=== PATIENT | male | born 1985 ===

== ENCOUNTER 2021-03-23 12:50 | Emergency (ER) | payer SELFPAY ==
--- NOTE | ~2021-03-23 | XR_ITS ---
EXAMINATION: XR ANKLE, RIGHT CLINICAL INFORMATION: Right ankle pain COMPARISON: None TECHNIQUE: AP, lateral, and mortise views of the right ankle. FINDINGS: There is bimalleolar soft tissue swelling. No visible acute fracture, dislocation or subluxation seen. Ankle mortise and subtalar joints are normal. XR/XR ankle RT min 3V IMPRESSION: Bimalleolar soft tissue swelling. No visible acute fracture, dislocation or subluxation seen.
[2021-03-23 14:01] VITALS: BP 138/70; PULSE 72; RESP 16; TEMP 36.6; O2SAT 100; BMI 39.5
[2021-03-23 17:37] VITALS: BP 143/81; PULSE 72; RESP 17; O2SAT 100
--- NOTE | 2021-03-23 17:47 | ED.LOWEXIN ---
HPI - Extremity Injury (Lower) General Chief Complaint: Extremity Injury, Lower Stated Complaint: ankle injury Time Seen by Provider: 03/23/21 17:42 Source: patient Mode of arrival: ambulatory Limitations: no limitations History of Present Illness complaint: ankle injury Onset (ago): minute(s) Injury: Right: ankle Type of Injury: eversion Place: street/outdoors Severity: severe Relieving factors: immobilization and rest Exacerbating factors: weight bearing, movement and palpation Context: running Associated symptoms: snap/pop sensation and swelling Other symptoms: none Related Data Previous Rx's Medication Instructions Recorded cyclobenzaprine 10 mg tablet 10 mg PO TID PRN #14 tab 03/23/21 hydrocodone 5 mg-acetaminophen 325 1 tab PO Q6H PRN #12 tab 03/23/21 mg tablet ibuprofen 600 mg tablet 600 mg PO Q6H PRN #30 tab 03/23/21 Allergies Allergy/AdvReac Type Severity Reaction Status Date / Time No Known Allergies Allergy Unverified 03/27/20 15:30 [No Known Allergies*] Review of Systems Review of Systems: Constitutional : No Fever, No Chills Cardiovascular : No Chest Pain, No SOB Respiratory : No Cough, No Dyspnea Gastrointestinal : No Nausea, No Vomiting, No Diarrhea, No abdominal Pain Genitourinary : No Dysuria, No Hematuria Musculoskeletal : positive joint pain, No Myalgias, pos Joint Swelling Skin : No Skin lacerations, No rash Neuro : No Weakness, No Numbness PMFSH Past Medical History Medical History (Updated 03/23/21 @ 17:52 by Nat Owens DO) No known health problems Social History Social History Advance Directives: No Advance Directives Information Provided: Yes Physical Exam Vital Signs: Vital Signs: Last Vital Signs Temp 98 F 03/23/21 14:01 Pulse 72 03/23/21 17:37 Resp 17 03/23/21 17:37 BP 143/81 H 03/23/21 17:37 Pulse Ox 100 03/23/21 17:37 Body Mass Index 39.5 Appearance: Alert. Oriented X3. No acute distress. Eyes: Pupils equal, round and reactive to light. ENT: Pharynx normal. Neck: Normal inspection. Neck supple. CVS: Normal heart rate and rhythm. Pulses normal. Respiratory: No respiratory distress. Breath sounds normal. Abdomen: Soft and non-tender. Skin: Skin warm and dry. Normal skin color. Normal skin turgor. Extremities: R ankle bimalleolar swelling moderate distal NV intact no prox fib ttp - pain to ankle, swelling and pain noted over deltoid lig area Neuro: Oriented X 3. No motor deficit. No sensory deficit. MDM - Extremity Injury (Lower) MDM Narrative Medical decision making narrative: 35 yo male with R ankle eversion injury - distal NV intact xrays ordered no prox fib ttp, splint/crutches Procedures Orthopedic Splinting/Casting Injury #1: Side: right Lower Extremity Injury Location: ankle Lower Extremity Immobilizer: stirrup splint Other Orthopedic Equipment: crutches Discharge Plan Discharge Clinical Impression: Ankle sprain and strain Patient Disposition: Home, Self-Care Instructions: Ankle Sprain (ED), Ankle Stirrup Splint (ED) Additional Instructions: return to ED for any worsening symptoms or concerns air cast and crutches x 1 week if not better please call our orthopedics department Prescriptions: New cyclobenzaprine 10 mg tablet 10 mg PO TID PRN (Reason: muscle spasm) Qty: 14 RF: 0 hydrocodone-acetaminophen 5-325 mg tablet 1 tab PO Q6H PRN (Reason: pain) Qty: 12 RF: 0 ibuprofen 600 mg tablet 600 mg PO Q6H PRN (Reason: pain) Qty: 30 RF: 0 Referrals: Jose J Paula MD [Physician] - 1 week Stand Alone Forms: Work/School Release
== END 2021-03-23 18:54 | disposition home or self-care (01) ==
PROVIDERS: Emergency Provider Emergency Medicine
DX: S96.911A Strain of unspecified muscle and tendon at ankle and foot level, right foot, initial encounter (principal); M79.671 Pain in right foot; X58.XXXA Exposure to other specified factors, initial encounter; Y93.9 Activity, unspecified; Y92.9 Unspecified place or not applicable; Y99.9 Unspecified external cause status; Z79.899 Other long term (current) drug therapy
CPT/HCPCS: 29515; 73610; 99283; 99284

== ENCOUNTER 2023-12-19 15:45 | Emergency (ER) | payer OTHER, SELFPAY ==
--- NOTE | ~2023-12-19 | XR_ITS ---
EXAMINATION: XR HAND/WRIST, LEFT CLINICAL INFORMATION: Injury with pain COMPARISON: None TECHNIQUE: PA, lateral, and oblique views of the left hand and wrist. FINDINGS: The bones and soft tissues are normal. No fracture. Alignment is anatomic. Joint spaces are maintained. No erosions or soft tissue calcifications. XR/XR hand wrist LT IMPRESSION: Normal radiographs of the hand and wrist.
[2023-12-19 15:54] VITALS: BP 143/101; PULSE 76; RESP 18; TEMP 36.3; O2SAT 98; BMI 37.6
--- NOTE | 2023-12-19 15:54 | ED_ITS ---
HPI - General Adult General Chief complaint: Extremity Injury, Upper Stated complaint: left wrist swollen and painful pt fell Time Seen by Provider: 12/19/23 18:36 Source: patient Mode of arrival: ambulatory Limitations: no limitations History of Present Illness ED Provider: Marcella Crespo PA-C HPI narrative: Patient is a 38 year old assigned male at with no reported medical history presenting to the emergency department today with left wrist pain. Patient states that a couple days ago he was playing volleyball when he injured his left wrist. Patient states that it hurts to apply downward pressure of his left hand. Patient denies any head strike, loss of consciousness, dizziness, lightheadedness, abdominal pain, nausea, vomiting, fever, chills, blurry vision, double vision, loss of vision, chest pain, difficulty breathing, shortness of breath, back pain, night sweats, pain with urination, increased urinary frequency, increased urinary urgency, blood in his urine or stool, syncope or a near syncopal episode, bowel incontinence, bladder incontinence, or any other complaints at this time. Onset (ago): day(s) Location: left and upper extremity Severity: mild Severity scale (1-10): 3 Quality: aching and dull Pain Consistency: constant Relieving factors: none Exacerbating factors: other (pain when pushing left hand down) Associated symptoms: denies other symptoms Treatments prior to arrival: none Related Data Previous Rx's ?Medication ?Instructions ?Recorded cyclobenzaprine 10 mg tablet 10 mg PO TID PRN muscle spasm #14 03/23/21 tabs hydrocodone 5 mg-acetaminophen 325 1 tab PO Q6H PRN pain #12 tabs 03/23/21 mg tablet ibuprofen 600 mg tablet 600 mg PO Q6H PRN pain #30 tabs 03/23/21 Allergies Allergy/AdvReac Type Severity Reaction Status Date / Time No Known Allergies Allergy Verified 12/19/23 15:56 [No Known Allergies*] Review of Systems Constitutional: Constitutional: Reports no additional constitutional complaints, Denies chills, Denies fever(s) and Denies night sweats Eyes: Eyes: Reports no additional eye complaints, Denies blurry vision, Denies change in vision, Denies diplopia, Denies eye discharge, Denies loss of vision and Denies eye pain ENT: Denies dizziness Cardiovascular: Cardiovascular: Reports no additional cardiovascular complaints, Denies chest pain, Denies lightheadedness, Denies Loss of Consciousness and Denies dyspnea Respiratory: Respiratory: Reports no additional respiratory complaints and Denies dyspnea Gastrointestinal: Gastrointestinal: Reports no additional gastrointestinal complaints, Denies abdominal pain, Denies melena, Denies hematochezia, Denies change in bowel habits and Denies change in stool character Genitourinary: Genitourinary: Reports no additional male genitourinary complaints, Denies hematuria, Denies oliguria, Denies difficulty urinating, Denies dysuria, Denies urinary frequency, Denies urinary hesitancy, Denies urinary incontinence and Denies urinary urgency Musculoskeletal: Musculoskeletal: Reports no additional musculoskeletal complaints, Denies numbness and Denies tingling Comments: left wrist pain Neurologic: Denies dizziness, Denies loss of vision, Denies numbness and Denies tingling Psychiatric: Psychiatric: Reports no additional psychiatric complaints Endocrine: Endocrine: Reports no additional endocrine complaints Hematologic/Lymphatic: Hematologic/Lymphatic: Reports no additional hematologic/lymphatic complaints Allergic/Immunologic: Allergic/Immunologic: Reports no additional allergic/immunologic complaints PMFSH Past Medical History Attestation statement: The following information was validated with the patient. Source: old records reviewed and nursing notes reviewed Medical History No known health problems Social History Social History Advance Directives: No Advance Directives Information Provided: No Do you have a plan to hurt others: No Plan Physical Exam ED Vital Signs: Vital Signs - 24 hr 12/19/23 15:54 Temperature 97.4 F Pulse Rate 76 Respiratory Rate 18 Blood Pressure 143/101 H Pulse Oximetry 98 Oxygen Delivery Method Room Air BMI result Body Mass Index 37.6 Const General: cooperative, no acute distress, alert and awake Nutritional Appearance: well nourished Orientation/consciousness: patient oriented x3 Limitations: no limitations HENMT Head: Yes normal to inspection and Yes atraumatic Ears: hearing grossly normal bilaterally and external ears normal General nose exam: Normal external nose present, no nasal discharge noted and no epistaxis Face and sinus: Yes normal facial exam, No abrasion and No laceration Mouth: Normal oral and palatal mucosa present, no drooling and no muffled voice Eyes General: appearance normal, both eyes and all related structures Periorbital: periorbital findings normal Eyelids: Yes eyelids normal Conjunctivae: conjunctivae normal Pupils: Equal, round and reactive pupils present EOM: EOMs intact bilaterally Neck Neck: Yes normal visual inspection, Yes full ROM and Yes no lymphadenopathy Chest Chest palpation & inspection: normal inspection of the chest Resp Effort & Inspection: normal respiratory effort and able to speak in complete sentences GI Inspection: Yes normal to inspection Neuro General: patient oriented x3 and moves all extremities Cranial nerves: Yes Equal, round and reactive pupils present Cognition (Neuro): normal cognition Motor exam (neuro): 5/5 motor strength present throughout Sensory Exam: Normal double simultaneous stimulation for sensation Coordination: [id number] test normal Extrem Other: pain in the left wrist with pronation and supination of the left hand / wrist General: Yes normal to inspection, Yes full ROM and Yes capillary refill normal Psych Appearance: grossly normal Mental Status: mental status grossly normal Affect: normal affect Attitude: cooperative Thought process: Normal thought process present Thought content: Normal thought content present Insight: Good insight present (Psych) Course Course Course Narrative: RME performed by Marcella Crespo PA-C. Patient is a 38 year old assigned male at presenting to the emergency department with left wrist pain after a volleyball accident. Detailed physical exam and review of systems are deferred to the publications production supervisor. Imaging ordered. Patient placed back in the waiting room pending room availability and results. Procedures Orthopedic Splinting/Casting Injury #1: Side: left Upper Extremity Injury Location: wrist Upper Extremity Immobilizer: thumb spica Medical Decision Making Medical Decision Making MDM Narrative: Patient is a 38 year old assigned male at with no reported medical history presenting to the emergency department today with left wrist pain. Patient's physical exam was as noted in the physical exam portion of this note. Patient's left hand/wrist x-ray showed no acute process. Given patient's clinical presentation, will treat with a velcro thumb spica splint. I explained my physical exam findings as well as all test results to the patient. I answered all questions asked by the patient. Patient's left wrist was placed in a velcro thumb spica splint, without incident. Patient's PMS was intact prior to and after splint placement. I stressed the importance of the patient taking his medication as prescribed. I stressed the importance of the patient following up with his primary care provider and an orthopedic provider. I stressed the importance of the patient returning to the emergency department immediately if his symptoms were to worsen or if he were to develop any dizziness, shortness of breath, difficulty breathing, chest pain, blurry vision, loss of vision, nausea, vomiting, abdominal pain, fever, chills, back pain, or any other complaints. Patient verbalized agreement and understanding with this treatment plan and discharge. Differential Diagnosis Differential Diagnoses: The differential diagnosis associated with the presentation includes Left wrist fracture Left hand fracture Left wrist sprain Left wrist strain Admission/Observation Consideration of admission/observation: Escalation of care including admission/observation considered Patient would have been admitted to the hospital had his work up had any findings where hospital admission was appropriate and his clinical presentation warranted hospital admission. Independent Interpretation I performed an independent interpretation of an: Plain X-Ray Interpretation: My interpretation is in agreement with the radiologist's impression of this imaging study. EXAMINATION: XR HAND/WRIST, LEFT CLINICAL INFORMATION: Injury with pain COMPARISON: None TECHNIQUE: PA, lateral, and oblique views of the left hand and wrist. FINDINGS: The bones and soft tissues are normal. No fracture. Alignment is anatomic. Joint spaces are maintained. No erosions or soft tissue calcifications. XR/XR hand wrist LT IMPRESSION: Normal radiographs of the hand and wrist. Dictated By: Jose El MD Signed By: Electronically signed by Jose lE MD 12/19/23 2346 Radiology Impression Discussion of test interpretation with radiology: I have reviewed the radiologist's reading. Discharge Plan Discharge Clinical Impression: Sprain and strain of wrist Patient Disposition: Home, Self-Care Instructions: Wrist Injury (ED), Sprain (ED) Additional Instructions: Please keep your splint on as much as you are able to tolerate until you are evaluated by the orthopedic team. Follow up with your primary care provider and an orthopedic provider. Return to the emergency department immediately if your symptoms worsen or if you develop any dizziness, shortness of breath, difficulty breathing, chest pain, blurry vision, loss of vision, nausea, vomiting, abdominal pain, fever, chills, back pain, or any other complaints. Prescriptions: No Action cyclobenzaprine 10 mg tablet 10 mg PO TID PRN (Reason: muscle spasm) Qty: 14 0RF hydrocodone-acetaminophen 5-325 mg tablet 1 tab PO Q6H PRN (Reason: pain) Qty: 12 0RF ibuprofen 600 mg tablet 600 mg PO Q6H PRN (Reason: pain) Qty: 30 0RF [place] [facility] [place]] (Call to establish and follow up with a primary care provider. If you already have a primary care provider, please follow up with them.) [facility] [place] [facility] [place] [facility] [place] [facility] [place] [facility] [facility] [place] [facility] [place] Group] (Call to establish and follow up with an orthopedic provider.) Stand Alone Forms: Work/School Release Print Language: German
[2023-12-19 19:20] VITALS: PULSE 84; RESP 17; TEMP 36.6; O2SAT 97
[2023-12-19 19:23] VITALS: BP 130/78
[2023-12-19 19:25] VITALS: BP 130/78; PULSE 84; RESP 17; TEMP 36.6; O2SAT 97
== END 2023-12-19 19:25 | disposition home or self-care (01) ==
PROVIDERS: Emergency Provider Internal Medicine
DX: S63.502A Unspecified sprain of left wrist, initial encounter (principal); S66.912A Strain of unspecified muscle, fascia and tendon at wrist and hand level, left hand, initial encounter; X58.XXXA Exposure to other specified factors, initial encounter; Y93.68 Activity, volleyball (beach) (court); Y92.9 Unspecified place or not applicable; Y99.9 Unspecified external cause status
CPT/HCPCS: 73110; 73130; 99283; 99284

== ENCOUNTER 2023-12-27 10:50 | Outpatient (REF) | payer SELFPAY | END 2023-12-27 10:51 | disposition home or self-care (01) | LOC: HO.HOSX 10:50 | PROVIDERS: Visit Provider Orthopaedic Surgery | DX: Z13.89 Encounter for screening for other disorder (principal) ==

== ENCOUNTER 2023-12-28 10:06 | Outpatient (REF) | payer SELFPAY ==
--- NOTE | ~2023-12-28 | XR_ITS ---
EXAMINATION: XR OF LEFT WRIST WITH SCAPHOID CLINICAL INFORMATION: Pain in left wrist. COMPARISON: Left hand wrist December 19, 2023. TECHNIQUE: 4 views of the left wrist and scaphoid. FINDINGS: Bone mineralization is normal. Mild degenerative changes in the first carpometacarpal joint with joint space narrowing and hypertrophic change. Ulnar minus variance. Tiny cystic lucency in the lunate. XR/XR wrist LT w scaphoid IMPRESSION: 1. Mild degenerative changes in the first carpometacarpal joint. 2. Ulnar minus variance. 3. Tiny cystic lucency in the lunate.
== END 2023-12-28 10:07 | disposition home or self-care (01) ==
LOC: HO.HOSX 10:06
PROVIDERS: Visit Provider Orthopaedic Surgery
DX: S63.502A Unspecified sprain of left wrist, initial encounter (principal)
CPT/HCPCS: 73110; 99202

== ENCOUNTER 2023-12-28 10:06 | Outpatient (AMB) | payer SELFPAY ==
--- NOTE | 2023-12-28 10:21 | MHC.OFFVIS ---
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 Patient explains a couple days ago he was playing volleyball when he injured and landed hands down injuring his left wrist. Patient states that flexion and extension of the wrist causes immediate pain. Discomfort is mainly on his dorsal aspect of hand/wrist. [place]rays taken in [facility] and referred to Orthopedics for further evaluation. He states currently his pain has slightly improved. The ED provided him with a brace which provided him some relief. Tylenol and ice give relief for a short period of time. Patient works at [employer] and would like a note for work explaining if he has any restrictions. He has provided us with a work status form. 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 He says he injured his wrist playing Volleyball on ~12/18/23. He was seen in the ED on 12/19/23 and given a thumb spica splint to wear. He notes that he has had some improvement over the last 2 weeks, but he continues to have some discomfort over the dorsal ulnar aspect of his left wrist particularly with active wrist extension. His pain is worse with wrist flexion & extension & daily activities. He reports occasional numbness in his fingers but says this is not daily. 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 He works at [employer] and is requesting a note for work with any current restrictions. He has been working light duty since his injury He says he volunteers with the [employer], and this injury occurred when playing their summer games tournament weekend. [facility] Medical History No known health problems Social History Alcohol intake: current Patient Tobacco Use Status: Never used Tobacco Substance Use Type: Marijuana Current occupational status: employed Current occupation: [employer] / right hand dominant Review of Systems Const All systems reviewed & are unremarkable except as noted in HPI and below Physical Exam Vital Signs: BMI result Body Mass Index 37.7 Const General: cooperative, healthy appearing and no acute distress Orientation/consciousness: patient oriented x3 HEENT Head: Yes normocephalic and Yes atraumatic Eyes EOM: EOMs intact bilaterally Resp Effort & Inspection: normal respiratory effort and able to speak in complete sentences Cardio Jugular venous distension: no JVD Skin General skin exam: turgor normal Rashes: no rashes Neuro General: patient oriented x3 Extrem Other: Evaluation of Left Upper Extremity: The patient is alert, oriented, and in no acute distress Neuro: Median, Ulnar, Radial nerves motor and sensory intact and sensation is normal to the tips of all digits Vascular: Cap refill brisk ROM: He can make a fist and extend all his digits No locking or catching He can make a tight fist with good strength and no pain. Skin: No lacerations or abrasions. General: No Ecchymosis. No swelling No Erythema or evidence of infection. The patient localizes his discomfort to the dorsal ulnar aspect of the wrist mostly over the carpal bones. Most tender over the dorsal aspect of the Triquetrum & lunotriquetral joint Mild tenderness over the scapholunate area. No tenderness over the distal radius, DRUJ, or distal ulna DRUJ stable on exam No tenderness over the fovea No tenderness in the snuffbox or scaphoid tubercle. Mild discomfort over the dorsal ulnar aspect of the wrist with resisted wrist extension Radiographs: 3 views of the left wrist, plus a scaphoid view, were taken & viewed by me today in clinic. They show no fractures or dislocations. I look specifically for a dorsal triquetral avulsion fracture, but did not see 1. I do not see any widening of the scapholunate or lunotriquetral intervals. Interestingly he does appear to have some peaking at the radial styloid which may indicate some early arthritic changes. He is completely asymptomatic on the radial side of his wrist. Psych Appearance: grossly normal Affect: normal affect Attitude: cooperative Assessment & Plan Assessment & Plan (1) Left wrist sprain: Code(s): S63.502A - Unspecified sprain of left wrist, initial encounter Category: Medical Plan Assessment & Plan: 1. Left wrist sprain/possible bone bruise over the dorsal triquetrum DOI: ~12/18/23, after a fall playing Volleyball I educated him about this condition This can be managed conservatively. 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 otherwise he does not want need to wear his brace and should work on keeping good range of motion in his wrist. 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 He was given a note for work restricting him to light duty with a 3lb weight for his left limit for the left upper extremity for the next 6 weeks. He will follow up in 6 weeks, no X-rays unless he has continued pain Scribed for Unique Wilkinson MD by Clinton Randolph, director of medical education, on 12/28/23 at 10:50 AM, EST. Orders: Orders XR wrist LT w scaphoid Today M25.532 - Pain in left wrist Medications: Discontinued cyclobenzaprine Discontinued Reason: Patient no longer taking 10 mg PO TID PRN 14 tabs 0RF muscle spasm hydrocodone-acetaminophen 5-325 mg Discontinued Reason: Patient no longer taking 1 tab PO Q6H PRN 12 tabs 0RF pain ibuprofen Discontinued Reason: Patient no longer taking 600 mg PO Q6H PRN 30 tabs 0RF pain Coding Level of Care Code New Pt Level 3 (50051) Diagnoses Left wrist sprain S63.502A
[2023-12-28 10:39] VITALS: BMI 37.7
== END 2023-12-28 11:11 | disposition home or self-care (01) ==
PROVIDERS: Visit Provider Orthopaedic Surgery
DX: S63.502A Unspecified sprain of left wrist, initial encounter (principal)
CPT/HCPCS: 99203

== ENCOUNTER 2024-02-08 10:32 | Outpatient (AMB) | payer OTHER, SELFPAY ==
--- NOTE | 2024-02-08 11:04 | A.OFFVIS_ITS ---
Intake Visit Reasons: OV-left wrist sprain/strain-Follow up Intake Note: Roberto Carlos is a 38 yo right hand dominant male who presents today to follow up on left wrist sprain. Patient denies numbness, tingling and locking on fingers. Patient states he experiences minimal pain with certain ROM. Patient reports he has been experiencing bilateral hand numbness and tingling when putting arms on upright position. He states it usually goes away when he moves his stretches his neck. Allergies No Known Allergies [No Known Allergies*] Allergy (Verified 02/08/24 11:09) HPI HPI OV-left wrist sprain/strain-Follow up: Details: Roberto Carlos is a 38 year old right hand dominant man who returns to discuss his left wrist sprain. He says he injured his wrist playing Volleyball on ~12/18/23. He was last seen by us on 12/28/2023 and treated with activity modification and bracing. He says he has improved in the last 6 weeks, and now has only minimal pain with certain wrist motions. He continues to complain of numbness in his bilateral hands, which he feels has been worsening. He says his numbness is in all fingers, hands, and occasionally into his forearms. He says he has numbness is primarily in his right hand, and is worse with hyperflexion of his elbow, such as prolonged periods of talking on the phone. He says this improves when he moves his arms or when moving his neck. He works at [employer] and is requesting a note for work with any current restrictions. He has been working light duty since his injury He says he volunteers with the [employer], and this injury occurred when playing their summer games tournament weekend. [facility] Medical History No known health problems Social History Alcohol intake: current Patient Tobacco Use Status: Never used Tobacco Substance Use Type: Marijuana Current occupational status: employed Current occupation: [employer] / right hand dominant Physical Exam Extrem Other: Evaluation of Left Upper Extremity: The patient is alert, oriented, and in no acute distress Neuro: Median, Ulnar, Radial nerves motor and sensory intact and sensation is normal to the tips of all digits No thenar or intrinsic wasting Good APB muscle belly firing and good finger cross Vascular: Cap refill brisk ROM: No locking or catching He can make a tight fist with good strength and no pain. No pain with wrist flexion & extension No tenderness over the dorsal aspect of the Triquetrum & lunotriquetral joint No tenderness over the scapholunate area. No tenderness over the distal radius, DRUJ, or distal ulna Assessment & Plan Assessment & Plan (1) Left wrist sprain: Code(s): S63.502A - Unspecified sprain of left wrist, initial encounter Category: Medical (2) Bilateral hand numbness: Code(s): R20.0 - Anesthesia of skin Category: Medical Plan Assessment & Plan: 1. Left wrist sprain/possible bone bruise over the dorsal triquetrum DOI: ~12/18/23, after a fall playing Volleyball I educated him about this condition He will discontinue his velcro wrist splint at this time. He can wear his splint when out of the house in crowded areas or with activities prone to falling, such as hiking I discussed activity modifications, he is to work on increasing his weight limit and use his wrist for more daily activities He should continue to work on wrist ROM exercises at home. 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 He was given a note for work to return to full duty on 02/13/24 2. Bilateral hand numbness In all digits, R>L Symptoms intermittent & occasional, worse with activity I educated him about carpal & cubital tunnel syndrome I ordered a NCS to assess for peripheral nerve compression He will follow up when completed if there are any pertinent findings. Scribed for Unique Wilkinson MD by Clinton Randolph medical consultant, on 12/28/23 at 10:50 AM, EST. Orders: Orders NE nerve conduction velocity Today R20.0 - Anesthesia of skin, R20.2 - Paresthesia of skin Coding Level of Care Code Est Pt Level 3 (49699) Diagnoses Left wrist sprain S63.502A Bilateral hand numbness R20.0
== END 2024-02-08 11:43 | disposition home or self-care (01) ==
PROVIDERS: Visit Provider Orthopaedic Surgery
DX: S63.502A Unspecified sprain of left wrist, initial encounter (principal); R20.0 Anesthesia of skin
CPT/HCPCS: 99213

== ENCOUNTER → 2024-02-08 10:32 | Outpatient (BNVA) | payer OTHER, SELFPAY | PROVIDERS: Visit Provider Orthopaedic Surgery ==

== ENCOUNTER 2024-05-07 22:33 | Emergency (ER) | payer OTHER, SELFPAY ==
--- NOTE | 2024-05-07 | ECG_ITS ---
Test Reason : SOB Blood Pressure : / mmHG Vent. Rate : 059 BPM Atrial Rate : 059 BPM P-R Int : 170 ms QRS Dur : 080 ms QT Int : 374 ms P-R-T Axes : 053 034 036 degrees QTc Int : 370 ms Sinus bradycardia Otherwise normal ECG No previous ECGs available Referred By: Generic ED Physician Electronically Signed By:DIEGO BLAND
--- NOTE | ~2024-05-07 | XR_ITS ---
EXAMINATION: XR THORACIC SPINE CLINICAL INFORMATION: Thoracic spine pain with no known injury COMPARISON: None available. TECHNIQUE: 3 views of the thoracic spine were obtained. FINDINGS: There is no fracture or bone destruction seen and the vertebral alignment is normal. There is no disc space narrowing. There is no abnormality of the paraspinal soft tissues. XR/XR thoracic spine 2V IMPRESSION: Unremarkable examination. Electronically signed by: Jose El MD 05/08/2024 12:51 AM EDT
[2024-05-07 22:45] VITALS: BP 117/71; PULSE 73; RESP 18; TEMP 36.5; O2SAT 100; BMI 36.5
[2024-05-07 23:07] LABS: MANUAL DIFF FLAG NO
[2024-05-07 23:09] LABS: Basophils Absolute Auto 0.1 X10*3/uL (0.0-0.2); Basophils Percent Auto 0.4 % (0-2); Eosinophils Absolute Auto 0.4 X10*3/uL (0.0-0.4); Eosinophils Percent Auto 2.9 % (0-4); Hematocrit 36.6 % (42.0-52.0); Hemoglobin 12.6 g/dl (14.0-18.0); Imm Gran Abs Auto 0.04 X10*3/uL (0.00-0.03); Imm Gran Pct Auto 0.3 % (0.0-0.4); Lymphocytes Absolute Auto 3.5 X10*3/uL (1.2-4.9); Lymphocytes Percent Auto 27.9 % (20-40); Mean Corpuscular HGB Conc 34.4 g/dl (31.0-36.0); Mean Corpuscular Volume 90.1 fL (80.0-98.0); Monocytes Absolute Auto 0.9 X10*3/uL (0.1-1.2); Monocytes Percent Auto 7.5 % (2-11); Neutrophils Absolute Auto 7.7 x10*3/uL (2.0-8.3); Platelet Count 334 X10*3/uL (160-400); Red Blood Count 4.06 X10*6/uL (4.60-5.80); Red Cell Distribution Width 13.7 % (11.0-16.0); White Blood Count 12.5 X10*3/uL (4.8-10.8)
[2024-05-07 23:28] LABS: Alanine Aminotransferase 23 U/L (0-40); Albumin Level 4.2 g/dL (3.5-5.0); Alkaline Phosphatase 93 U/L (39-117); Anion Gap 8 (12-20); Aspartate Amino Transferase 24 U/L (5-37); Bilirubin Total 0.2 mg/dL (0.0-1.0); Blood Urea Nitrogen 15 mg/dL (9-16); Carbon Dioxide 26 mmol/L (22-29); Chloride 111 mmol/L (96-108); Estimated Glomerular Filt Rate > 60; Glucose Random 86 mg/dL (60-115); Sodium 141 mmol/L (135-145)
[2024-05-07 23:29] LABS: Troponin-I High Sensitivity < 2.7 ng/L (<3.5-35.0)
[2024-05-08 00:02] LABS: Calcium 9.1 mg/dL (8.4-10.2)
--- NOTE | 2024-05-08 01:54 | ED_ITS ---
HPI - Back Pain/Injury General Chief Complaint: Back Pain/Injury Stated Complaint: Back Pain Time Seen by Provider: 05/08/24 01:44 Source: patient Mode of arrival: ambulatory Limitations: no limitations History of Present Illness ED Provider: Dr. Prema Sorensen HPI Narrative: Patient comes to the emergency room complaining of left-sided back pain. According to the patient, he woke up with left-sided back pain. Patient states it is worse when he tries to get out of bed or moves a certain way. Patient denies any injury, denies heavy lifting. The pain stays in the left back, does not radiate towards the buttocks or left lower extremity. Patient denies flank pain, no hematuria or dysuria Related Data Home Medications ?Medication ?Instructions ?Recorded ?Confirmed acetaminophen 500 mg tablet 1,000 mg PO Q6H PRN 12/28/23 (Tylenol Extra Strength) Previous Rx's ?Medication ?Instructions ?Recorded cyclobenzaprine 10 mg tablet 10 mg PO TID PRN muscle spasm #10 05/08/24 tabs ketorolac 10 mg tablet 10 mg PO Q8H PRN pain #10 tabs 05/08/24 Allergies Allergy/AdvReac Type Severity Reaction Status Date / Time No Known Allergies Allergy Verified 05/07/24 22:48 [No Known Allergies*] Review of Systems 2 Review of Systems: Constitutional : No Weight loss, No Fever, No Chills, No Night Sweats, No Fatigue, No Malaise ENT/Mouth : No Hearing loss, No Ear Pain, No Nasal Congestion, No Sinus Pain, No Hoarseness, No sore throat, No Rhinorrhea, No Swallowing Difficulty Eyes: No Eye Pain, No Swelling, No Redness, No Foreign Body, No Discharge, No Vision Changes Cardiovascular : No Chest Pain, No SOB, No Dyspnea on Exertion, No Orthopnea, No Edema, No Palpitations Respiratory : No Cough, No Sputum, No Wheezing, No Smoke Exposure, No Dyspnea Gastrointestinal : No Nausea, No Vomiting, No Diarrhea, No Constipation, No abdominal Pain, No Hematochezia, No Melena Genitourinary : no irregular bleeding, No Dysuria, No Urinary Frequency, No Hematuria, No Urinary Incontinence, No Urgency, No Flank Pain, No Urinary Flow Changes, No Hesitancy Musculoskeletal : Complaining of left-sided back pain worse with certain movements such as sitting up. No joint pain, No Myalgias, No Joint Swelling Skin : No Skin Lesions, No rash Neuro : No Weakness, No Numbness, No Paresthesias, No Loss of Consciousness, No Dizziness, No Headache Psych : No Anxiety/Panic, No Depression, No SI/HI/AH/VH, No Social Issues, Heme/Lymph: No Bruising, No Bleeding,No Lymphadenopathy Endocrine : No Polyuria, No Polydipsia, No Temperature Intolerance [facility] Past Medical History Medical History No known health problems Social History Social History Alcohol intake: current Patient Tobacco Use Status: Never used Tobacco Substance Use Type: Marijuana Advance Directives: No Advance Directives Information Provided: Yes Current occupational status: employed Current occupation: [employer] / right hand dominant Physical Exam 2 Vital Signs: Vital Signs: Last Vital Signs Temp 97.7 F 05/07/24 22:45 Pulse 73 05/07/24 22:45 Resp 18 05/07/24 22:45 BP 117/71 05/07/24 22:45 Pulse Ox 100 05/07/24 22:45 O2 Del Method Room Air 05/07/24 22:45 BMI result Body Mass Index 36.5 Const: Other: Appearance: Alert. Oriented X3. No acute distress. Eyes: Pupils equal, round and reactive to light. ENT: Pharynx normal. Neck: Normal inspection. Neck supple. No lymph nodes noted. No crepitus CVS: Normal heart rate and rhythm. Pulses normal. Normal S1 and S2 Respiratory: No respiratory distress. Breath sounds normal. No Wheezing. No rales Abdomen: Soft and nontender. No rigidity. No distention. Back: No pain to palpation over the lumbar or thoracic spine. Minimal pain to palpation over the middle or lower back. Reproducible pain with patient sitting up from bed or moving his torso to the left. Skin: Skin warm and dry. Normal skin color. Normal skin turgor. Extremities: No lower extremity edema. No Lacerations. No Rash Neuro: Oriented X 3. No motor deficit. No sensory deficit. Moving all extremities. No slurred speech. CN 2 through 12 grossly intact Psych: calm, cooperative, normal affect Medications Administered Discontinued Medications Generic Name Dose Route Start Last Admin Trade Name Freq PRN Reason Stop Dose Admin Cyclobenzaprine HCl 5 mg 05/08/24 01:50 05/08/24 02:05 Cyclobenzaprine Hcl 5 Mg Tablet PO 05/08/24 01:51 5 mg ONCE ONE Administration Ketorolac Tromethamine 60 mg 05/08/24 01:50 05/08/24 02:05 Ketorolac Tromethamine 60 Mg/2 Ml Vial IM 05/08/24 01:51 60 mg ONCE ONE Administration Medical Decision Making Medical Decision Making [facility] Narrative: My interpretation of labs, patient's white blood cell count 12.5, chemistry within normal limits. Urinalysis pending -patient being given IM Toradol and p.o. cyclobenzaprine 5 mg. -patient's urinalysis negative for UTI or blood. Patient's pain likely musculoskeletal. Given the patient's description of pain, unlikely to be secondary to ureterolithiasis. Differential Diagnosis Differential Diagnoses: The differential diagnosis associated with the presentation includes (UTI, pyelonephritis, ureterolithiasis, musculoskeletal pain) Lab Data [facility] Lab Attestation statement: I reviewed the patient's lab results. 05/07/24 23:02 05/07/24 23:02 Labs: Lab Results 05/07/24 05/08/24 Range/Units 23:02 02:11 WBC 12.5 H (4.8-10.8) X10*3/uL RBC 4.06 L (4.60-5.80) X10*6/uL Hgb 12.6 L (14.0-18.0) g/dl Hct 36.6 L (42.0-52.0) % MCV 90.1 (80.0-98.0) fL MCH 31.0 (27.0-33.0) pg MCHC 34.4 (31.0-36.0) g/dl RDW 13.7 (11.0-16.0) % Plt Count 334 (160-400) X10*3/uL MPV 10.0 (9.4-12.4) fL Immature Gran % (Auto) 0.3 (0.0-0.4) % Neut % (Auto) 61.0 (45-73) % Lymph % (Auto) 27.9 (20-40) % Swift % (Auto) 7.5 (2-11) % Eos % (Auto) 2.9 (0-4) % Baso % (Auto) 0.4 (0-2) % Lymph # (Auto) 3.5 (1.2-4.9) X10*3/uL Swift # (Auto) 0.9 (0.1-1.2) X10*3/uL Eos # (Auto) 0.4 (0.0-0.4) X10*3/uL Baso # (Auto) 0.1 (0.0-0.2) X10*3/uL Abs Immat Gran (auto) 0.04 H (0.00-0.03) X10*3/uL Absolute Neuts (auto) 7.7 (2.0-8.3) x10*3/uL Absolute Nucleated RBC 0.000 (0.0-0.012) X10*3/uL Nucleated RBC % (auto) 0.0 (0.0-0.2) /100WBC Sodium 141 (135-145) mmol/L Potassium 4.0 (3.3-5.1) mmol/L Chloride 111 H (96-108) mmol/L Carbon Dioxide 26 (22-29) mmol/L Anion Gap 8 L (12-20) BUN 15 (9-16) mg/dL Creatinine 1.06 (0.5-1.4) mg/dL Estim Creat Clear Calc 113.0 Estimated GFR > 60 Random Glucose 86 (60-115) mg/dL Calcium 9.1 (8.4-10.2) mg/dL Total Bilirubin 0.2 (0.0-1.0) mg/dL AST 24 (5-37) U/L ALT 23 (0-40) U/L Alkaline Phosphatase 93 (39-117) U/L Troponin I High Sens < 2.7 (<3.5-35.0) ng/L Total Protein 7.0 (6.5-8.0) g/dL Albumin 4.2 (3.5-5.0) g/dL Urine Color Yellow Urine Appearance Cloudy Urine pH 6.5 (5.0-9.0) Ur Specific [place] >= 1.030 H (1.005-1.025) Urine Protein Trace (Neg-Trace) mg/dL Urine Glucose (UA) Negative (Negative) mg/dL Urine Ketones Trace (Negative) mg/dL Urine Blood Negative (Negative) Urine Nitrite Negative (Negative) Ur Leukocyte Esterase Negative (Negative) Urine RBC 0-2 (0-2) /HPF Urine WBC 0-5 (0-5) /HPF Ur Squamous Epith Cells 0-2 (0-2) /HPF Urine Bacteria None Seen (None Seen) Hyaline Casts 0-2 (0-2) /LPF Independent Interpretation I performed an independent interpretation of an: Plain X-Ray Radiology Impression Discussion of test interpretation with radiology: I have reviewed the radiologist's reading. Radiologist Impression: There is no fracture or bone destruction seen and the vertebral alignment is normal. There is no disc space narrowing. There is no abnormality of the paraspinal soft tissues. XR/XR thoracic spine 2V IMPRESSION: Unremarkable examination. Discharge Plan Discharge Clinical Impression: Musculoskeletal back pain Patient Disposition: Home, Self-Care Instructions: Back Pain (ED) Additional Instructions: Please follow-up with your primary care physician tomorrow. If you have any worsening or new symptoms, please return to the emergency room or call 911 Prescriptions: New ketorolac 10 mg tablet 10 mg PO Q8H PRN (Reason: pain) Qty: 10 0RF Rx Instructions: maximum total duration of 5 days from all oral, intranasal, or parenteral formulations. Do not use this medication with ibuprofen/NSAIDs cyclobenzaprine 10 mg tablet 10 mg PO TID PRN (Reason: muscle spasm) Qty: 10 0RF No Action acetaminophen [Tylenol Extra Strength] 500 mg tablet 1,000 mg PO Q6H PRN Stand Alone Forms: Work/School Release Print Language: Polish
[2024-05-08] MEDS: Ketorolac Tromethamine 60 MG/2 ML VIAL IM (02:05)
[2024-05-08] MEDS: Cyclobenzaprine HCl 5 MG TABLET PO (02:05)
[2024-05-08 02:18] LABS: Appearance Urine Cloudy; Color Urine Yellow; Glucose Urine UA Negative (Negative); Leukocyte Esterase Urine Negative (Negative); Nitrite Urine Negative (Negative); PH 6.5 (5.0-9.0); Specific Gravity - Urine >= 1.030 (1.005-1.025); Urine Blood Negative (Negative); Urine Ketones Trace mg/dL (Negative); Urine Protein Trace mg/dL (Neg-Trace)
[2024-05-08 02:23] LABS: Bacteria Urine None Seen (None Seen); Hyaline Casts Urine 0-2 /LPF (0-2); RBC Urine 0-2 /HPF (0-2); Squamous Epithelial Cell Urine 0-2 /HPF (0-2); WBC Urine 0-5 /HPF (0-5)
[2024-05-08 03:02] VITALS: BP 117/71; PULSE 73; RESP 18; TEMP 36.5; O2SAT 100
== END 2024-05-08 02:45 | disposition home or self-care (01) ==
PROVIDERS: Emergency Provider Emergency Medicine
DX: M54.50 Low back pain, unspecified (principal); R06.02 Shortness of breath; R00.1 Bradycardia, unspecified; M54.6 Pain in thoracic spine; Z79.899 Other long term (current) drug therapy
CPT/HCPCS: 36415; 72070; 80053; 81001; 84484; 85025; 93005; 96372; 99284; J1885

== ENCOUNTER → 2024-05-07 22:52 | Outpatient (BNV) | payer OTHER, SELFPAY | PROVIDERS: Emergency Provider Emergency Medicine; Visit Provider Internal Medicine | DX: R06.02 Shortness of breath (principal) | CPT/HCPCS: 93010 ==

== ENCOUNTER 2025-05-05 21:29 | Emergency (ER) | payer OTHER, SELFPAY ==
[2025-05-05 21:31] VITALS: BP 135/68; PULSE 71; RESP 18; TEMP 36.5; O2SAT 98; BMI 38.0
[2025-05-05 22:08] LABS: COVID-19 Test Negative (Negative); IDNOW Serial# 55D5AD1C
[2025-05-05 22:12] LABS: IDNOW Serial# 58CA691E; Influenza B2 Negative (Negative)
--- NOTE | 2025-05-05 22:19 | PC.NURSE ---
Pt sitting in chair at bedside rocking back and forth in pain. Lights dimmed and noise minimized. Awaiting md lugo and orders
--- NOTE | 2025-05-05 23:57 | ED.GENADULT ---
HPI - General Adult General Chief complaint: Dental/Oral Stated complaint: rt side face pain Time Seen by Provider: 05/05/25 23:57 History of Present Illness ED Provider: Prerna MUNIZ narrative: The patient is a 39-year-old male no significant past medical history who has been having problems with pain in the right side of his face for a couple of months. He says that he has been using ibuprofen and Tylenol for this pain. He has also purchased some ?[id number]? amoxicillin because of this pain. He acknowledges that the amoxicillin he has been purchasing without a prescription may have been sold by non legal means but he says that he has gotten some relief when he has taken the amoxicillin. He says that he went to a dental office but would not be seen because he had no insurance. He has a new job but he is not sure what his insurance options are yet. He he believes that the problem is coming from his right upper last molar. No fever, sweats, chills. Related Data Home Medications ?Medication ?Instructions ?Recorded ?Confirmed acetaminophen 500 mg tablet 1,000 mg PO Q6H PRN 12/28/23 (Tylenol Extra Strength) Previous Rx's ?Medication ?Instructions ?Recorded cyclobenzaprine 10 mg tablet 10 mg PO TID PRN muscle spasm #10 05/08/24 tabs ketorolac 10 mg tablet 10 mg PO Q8H PRN pain #10 tabs 05/08/24 acetaminophen 500 mg capsule 1,000 mg (2 x 500 mg) PO Q8H PRN 05/06/25 fever or pain #14 caps amoxicillin 500 mg capsule 500 mg PO TID 10 days #30 caps 05/06/25 ibuprofen 400 mg tablet 400 mg PO Q6H PRN pain #14 tabs 05/06/25 Allergies Allergy/AdvReac Type Severity Reaction Status Date / Time No Known Allergies (No Known Allergy Verified 05/05/25 21:34 Allergies*) Review of Systems Review of Systems: Yes all other systems are reviewed and are negative PMFSH Past Medical History Medical History No known health problems Social History Social History Alcohol intake: current Alcohol intake frequency: holidays/special occasions only Alcohol type: beer Patient Tobacco Use Status: Never used Tobacco Smoked in Last 30 Days: Yes Use of substances other than those prescribed or required for medical reasons: Yes Substance Use Type: Marijuana Substance Use Frequency: Chronic Longstanding Advance Directives: No Advance Directives Information Provided: No Do you have a plan to hurt others: No Plan Current occupational status: employed Current occupation: [employer] / right hand dominant Physical Exam ED Vital Signs: Vital Signs - 24 hr 05/05/25 21:31 Temperature 97.7 F Pulse Rate 71 Respiratory Rate 18 Blood Pressure 135/68 Pulse Oximetry 98 Oxygen Delivery Method Room Air BMI result Body Mass Index 38.0 Const Other: The patient is awake and alert. He does not appear obviously toxic or in distress. Orientation/consciousness: patient oriented x3 HENMT Other: The face is symmetrical. ?No obvious soft tissue swelling. The face appears normal. The pharynx appears normal. The upper teeth on the right side do not seem obviously decayed. There was no soft tissue swelling. There is no trismus. Eyes Other: Pupils are round equal, conjunctivae are clear, extraocular movements intact Neck Neck: Yes normal visual inspection, Yes full ROM and Yes no lymphadenopathy Resp Effort & Inspection: normal respiratory effort Auscultation: clear to auscultation bilaterally Cardio Rate: regular rate Rhythm: regular rhythm Heart sounds: S1 normal heart sound present and S2 normal heart sound present Skin Other: The skin is dry and unremarkable Neuro General: patient oriented x3, gait normal, tone normal, moves all extremities, no focal motor deficits and CN's II-XI intact bilaterally Extrem Other: Extremities are unremarkable Medical Decision Making Medical Decision Making MDM Narrative: The patient is an otherwise healthy 39-year-old male who has had intermittent right-sided facial pain for the last few weeks which he believes is related to a dental problem. He does not have insurance so he has been unable to see a dentist. I find his physical exam very unremarkable. I do not see any sign of an acutely dangerous process. He will be given a prescription for amoxicillin. He was given information about the hospital's office to help with insurance. He will be discharged with a prescription for amoxicillin, also ibuprofen and acetaminophen. He will be advised to try to clarify his insurance options and try to get a regular provider. Lab Data Labs: Lab Results 05/05/25 Range/Units 21:46 COVID-19 ([facility]) Negative (Negative) COVID-19 Clin Com See Note Influenza Type A ([facility]) Negative (Negative) Influenza Type B ([facility]) Negative (Negative) Influenza A & B Note See Note Discharge Plan Discharge Clinical Impression: Pain, dental Patient Disposition: Home, Self-Care Instructions: Toothache (ED) Additional Instructions: Please take the antibiotic, amoxicillin, 3 times a day as prescribed. Use ibuprofen and acetaminophen as needed for pain. Please continue your efforts to try to get insurance so that you can get a regular dentist. Return to the emergency room if significantly worse. Prescriptions: New ibuprofen 400 mg tablet 400 mg PO Q6H PRN (Reason: pain) Qty: 14 0RF acetaminophen 500 mg capsule 1,000 mg PO Q8H PRN (Reason: fever or pain) Qty: 14 0RF amoxicillin 500 mg capsule 500 mg PO TID 10 Days Qty: 30 0RF No Action ketorolac 10 mg tablet 10 mg PO Q8H PRN (Reason: pain) Qty: 10 0RF Rx Instructions: maximum total duration of 5 days from all oral, intranasal, or parenteral formulations. Do not use this medication with ibuprofen/NSAIDs cyclobenzaprine 10 mg tablet 10 mg PO TID PRN (Reason: muscle spasm) Qty: 10 0RF acetaminophen [Tylenol Extra Strength] 500 mg tablet 1,000 mg PO Q6H PRN Print Language: Swedish
[2025-05-06 00:36] VITALS: BP 135/68; PULSE 71; RESP 18; TEMP 36.5; O2SAT 98
== END 2025-05-06 00:39 | disposition home or self-care (01) ==
PROVIDERS: Emergency Provider Emergency Medicine
DX: K08.89 Other specified disorders of teeth and supporting structures (principal); R51.9 Headache, unspecified; Z11.52 Encounter for screening for COVID-19; Z79.899 Other long term (current) drug therapy
CPT/HCPCS: 87502; 87635; 96372; 99284; J1885